=== PATIENT | male | born 1945 | race Hispanic/Latino ===

== ENCOUNTER 2022-12-08 08:50 | Day surgery (SDC) | payer OTHER ==
[2022-12-02 14:50] LABS: Absolute Lymphocytes (CBC) 1.7 K/uL (0.7-4.9); Hematocrit 39.5 % (39.6-49.0); Lymphocytes % 19.2 % (15.3-44.8); MCV 79.3 fL (80-100); RBC Red Blood Cell Count 4.98 M/uL (4.33-5.43)
[2022-12-02 14:54] LABS: Protime INR 1.1
[2022-12-02 15:02] LABS: Potassium 3.8 mEq/L (3.5-5.1)
--- NOTE | 2022-12-02 15:04 | RAD REPORT ---
EXAM DESCRIPTION: Artis Ragland (2 Views)12/02/2022 2:37 pm CLINICAL HISTORY: Preop for carpal tunnel surgery. Hypertension COMPARISON: 2019 FINDINGS: The lungs appear clear of acute infiltrate. The heart is normal size IMPRESSION: No acute abnormalities displayed
--- NOTE | 2022-12-03 10:12 | EKG ---
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
[2022-12-08] MEDS ORDERED: CEFAZOLIN SODIUM 1 GM/VIAL ONE (09:20)
[2022-12-08] MEDS ORDERED: Ringers Lactate 1,000 ML IV ONE (09:20)
[2022-12-08] MEDS ORDERED: propofoL 200 MG/20 ML VIAL IV ONE (11:13)
[2022-12-08] MEDS ORDERED: FENTANYL CITR 100 MCG/2 ML ONE (11:13)
[2022-12-08] MEDS ORDERED: MIDAZOLAM HCL 2 MG/2 ML INJ ONE (11:14)
[2022-12-08] MEDS ORDERED: LIDOCAINE 2% MPF 5 ML VIAL ONE (11:15)
[2022-12-08] MEDS ORDERED: ONDANSETRON 4 MG/2 ML VIAL ONE (11:15)
[2022-12-08] MEDS ORDERED: BUPIVACAINE 0.25% PF 10 ML VIAL ONE (11:24)
--- NOTE | 2022-12-08 12:39 | P.BOP ---
Preoperative diagnosis: left carpal tunnel syndrome Postoperative diagnosis: same Primary procedure: left open carpal tunnel release [employer]: NONE,NONE Estimated blood loss: 3 cc Specimen: none Findings: see dictation Anesthesia: General Complications: None Implants: none Fluids & blood products: per anesthesia record; TT: 20 mins @ 250 mmHg Transferred to: Recovery Room Condition: Good
--- NOTE | 2022-12-08 12:41 | P.OP ---
Preoperative diagnosis: left carpal tunnel syndrome Postoperative diagnosis: same Primary procedure: left open carpal tunnel release Anesthesia: general Estimated blood loss: 3 cc Specimen: none Findings: see dictation Operative Technique: Reason for Surgery: The patient had physical exam findings as well as EMG findings consistent with left carpal tunnel syndrome. I discussed with the patient at length risks and benefits associated with the procedure. They expressed understanding and elected proceed with operative treatment. Description of Procedure: After informed consent was obtained the patient was identified in the preoperative holding area. The left upper extremity was marked patient. Patient then brought back to the operating room transferred the operative table in supine fashion and placed under anesthesia. The left upper extremity was exsanguinated and the tourniquet was inflated to 250 mmHg. Approximately a 3 cm longitudinal incision was made just ulnar to the thenar crease. Dissection was then taken down to the palmar fascia which was identified. A [place] elevator was then placed just deep to the palmar fascia to protect the median nerve at all times. A 15 blade was then used to release the palmar fascia and transverse carpal ligament leaving the [place] elevator to protect the nerve at all times. Any remaining fascial bands were then released using a blunt tip Metzenbaum scissor. The tips were him superficially to protect the median nerve at all times. The wound was then irrigated thoroughly with normal saline. The skin was approximated using a 5-0 Prolene. Sterile dressings were applied and patient was awakened and transferred to PACU in stable condition. Postoperative plan: The patient will follow-up in 1 to 2 weeks for wound check and suture removal. They may begin to work on range of motion exercises at this time. Complications: None Implants: none Fluids & blood products: per anesthesia record; TT: 20 mins @ 250 mmHg Transferred to: Recovery Room Condition: Good
[2022-12-08 13:59] VITALS: BP 137/64; TEMP 97.4; O2SAT 96
== END 2022-12-08 13:30 | disposition home or self-care (01) ==
LOC: OR 08:50
PROVIDERS: ATTEND Orthopaedic Surgery Sports Medicine
PROC: 01N50ZZ Release Median Nerve, Open Approach (ICD-10-PCS; principal; 2022-12-08 11:00)
DX: G56.02 Carpal tunnel syndrome, left upper limb (principal); M25.542 Pain in joints of left hand
CPT/HCPCS: 93005; 85025; 80048; 36415; 85610; 85730; 71046; 64721; J2704; J2001; J2250; J3010; J2405; J7120; J0690

== ENCOUNTER 2023-03-05 06:42 | Emergency (ER) | payer OTHER ==
--- OUTSIDE RECORDS SUMMARY | 2023-03-05 06:45 | XMS REPORT | Continuity of Care Document ---
:1945 Author Organization [facility] t Address [address] [place] [address] [place] [id number] Care Team Providers Name Role Phone Aldo Pacheco Attending Clinician Problems Condition Condition Condition Status Onset Resolution Last Treating Co mments Source Name Details Category Date Date Treatment Clinician Date Carpal Carpal Problem Active 2022-11-07 Jose johnna tunnel tunnel 11:58:06 l syndrome syndrome Abelardo n (disorder) (disorder) Active Problem 11/07/2022 [facility] [place] Allergies, Adverse Reactions, Alerts This patient has no known allergies or adverse reactions. Medications This patient has no known medications. Procedures This patient has no known procedures. Encounters Start End Encounter Admission Attending Care Care Encounter Source Date/Time Date/Time Type Type Clinicians Facility Department ID 2022-11-04 2022-11-05 Outpatient [facility] [id number] 20:45:00 04:59:59 Neurology 00 l Vinny Bertrand 2022-11-04 2022-11-04 [id number] 15:45:00 23:59:59 Aldo Jaramillo 2022-11-04 2022-11-04 [id number] 15:45:00 15:45:00 00 l Jerzy Results This patient has no known results.
--- NOTE | 2023-03-05 08:21 | RAD REPORT ---
EXAM DESCRIPTION: RAD - Hand Left 3 View - 03/05/2023 8:12 am CLINICAL HISTORY: PAIN COMPARISON: No comparisons FINDINGS/IMPRESSION: Possible nondisplaced fracture at the thumb distal phalanx which is longitudina l in orientation and without intra-articular extension. No other possible fracture identified.
[2023-03-05] MEDS ORDERED: HYDROCODONE/APAP 7.5/325 MG TAB ONE (08:44)
--- NOTE | 2023-03-05 08:57 | EDPHYS ---
Physician Documentation [facility] Name: Wellington Finn Age: 77 yrs Sex: Male : 1945 Arrival Date: 03/05/2023 Time: 06:42 Bed 13 Private MD: ED Physician Ronald Lama HPI: 03/05 08:52 This 77 yrs old Male presents to ER via Ambulatory with complaints of Fall mila Injury, Hand Injury. 08:52 Details of fall: The patient fell from an upright position, while walking. Onset: The mila symptoms/episode began/occurred yesterday. Associated injuries: The patient sustained decreased range of motion, deformity, painful injury, swelling. Severity of symptoms: At their worst the symptoms were moderate, in the emergency department the symptoms are unchanged. The patient has not experienced similar symptoms in the past. Historical: - Allergies: 07:10 No Known Allergies; ll1 - PMHx: 07:10 Hypertensive disorder; Hypercholesterolemia; ll1 - PSHx: 07:10 cataract repair; hernia repair; carpal tunnel repair B; ll1 - Immunization history:: Client reports receiving the 2nd dose of the Covid vaccine. - Social history:: Smoking status: Patient denies any tobacco usage or history of. ROS: 08:53 Constitutional: Negative for fever, chills, and weight loss, Eyes: Negative for injury, mila pain, redness, and discharge, ENT: Negative for injury, pain, and discharge, Neck: Negative for injury, pain, and swelling, Cardiovascular: Negative for chest pain, palpitations, and edema, Respiratory: Negative for shortness of breath, cough, wheezing, and pleuritic chest pain, Abdomen/GI: Negative for abdominal pain, nausea, vomiting, diarrhea, and constipation, Back: Negative for injury and pain, : Negative for injury, bleeding, discharge, and swelling, Skin: Negative for injury, rash, and discoloration, Neuro: Negative for headache, weakness, numbness, tingling, and seizure, Psych: Negative for depression, anxiety, suicide ideation, homicidal ideation, and hallucinations, Allergy/Immunology: Negative for hives, rash, and allergies, Endocrine: Negative for neck swelling, polydipsia, polyuria, polyphagia, and marked weight changes. 08:53 MS/extremity: Positive for decreased range of motion, pain, swelling, tenderness, of the lateral aspect of left hand, dorsum of left hand and Left first web space. Exam: 08:53 Constitutional: This is a well developed, well nourished patient who is awake, alert, mila and in no acute distress. Head/Face: Normocephalic, atraumatic. Eyes: Pupils equal round and reactive to light, extra-ocular motions intact. Lids and lashes normal. Conjunctiva and sclera are non-icteric and not injected. Cornea within normal limits. Periorbital areas with no swelling, redness, or edema. ENT: Nares patent. No nasal discharge, no septal abnormalities noted. Tympanic membranes are normal and external auditory canals are clear. Oropharynx with no redness, swelling, or masses, exudates, or evidence of obstruction, uvula midline. Mucous membranes moist. Neck: Trachea midline, no thyromegaly or masses palpated, and no cervical lymphadenopathy. Supple, full range of motion without nuchal rigidity, or vertebral point tenderness. No Meningismus. Chest/axilla: Normal chest wall appearance and motion. Nontender with no deformity. No lesions are appreciated. Cardiovascular: Regular rate and rhythm with a normal S1 and S2. No gallops, murmurs, or rubs. Normal PMI, no JVD. No pulse deficits. Respiratory: Lungs have equal breath sounds bilaterally, clear to auscultation and percussion. No rales, rhonchi or wheezes noted. No increased work of breathing, no retractions or nasal flaring. Abdomen/GI: Soft, non-tender, with normal bowel sounds. No distension or tympany. No guarding or rebound. No evidence of tenderness throughout. Back: No spinal tenderness. No costovertebral tenderness. Full range of motion. Male : Normal genitalia with no discharge or lesions. Skin: Warm, dry with normal turgor. Normal color with no rashes, no lesions, and no evidence of cellulitis. Neuro: Awake and alert, GCS 15, oriented to person, place, time, and situation. Cranial nerves II-XII grossly intact. Motor strength 5/5 in all extremities. Sensory grossly intact. Cerebellar exam normal. Normal gait. Psych: Awake, alert, with orientation to person, place and time. Behavior, mood, and affect are within normal limits. 08:53 Musculoskeletal/extremity: Extremities: grossly normal except: decreased ROM, pain, swelling, tenderness, ROM: limited active range of motion, limited passive range of motion, limited active range of motion due to pain, limited passive range of motion due to pain, Circulation is intact in all extremities. Sensation intact. Compartment Syndrome exam of affected extremity: is normal. Tendon exam: specific tendon testing normal through active and passive range of motion Vital Signs: 07:10 BP 175 / 70; Pulse 63; Resp 17; Temp 98; Pulse Ox 97% on R/A; Pain 10/10; ll1 07:42 Weight 68.04 kg; ph 09:11 BP 120 / 87; Pulse 67; Resp 18; Pulse Ox 100% on R/A; ph 07:10 Pain Scale: Adult ll1 MDM: 07:07 Patient medically screened. mila 08:53 Differential diagnosis: dislocation, closed fracture, contusion, tendonitis. mila Differential diagnosis: contusion, fracture, sprain, strain. Data reviewed: vital signs, nurses notes, radiologic studies, plain films. Consideration of Admission/Observation Escalation of care including admission/observation considered. I considered the following discharge prescriptions or medication management in the emergency department Medications were administered in the Emergency Department. See MAR. Test considered but Not performed: Labs: NO LABS. Care significantly affected by the following chronic conditions: Hypertension, Obesity, HIGH CHOLESTEROL. Counseling: I had a detailed discussion with the patient and/or guardian regarding the historical points, exam findings, and any diagnostic results supporting the discharge/admit diagnosis, radiology results, the need for outpatient follow up, for definitive care, a orthopedic surgeon. 03/05 07:30 Order name: Hand Left 3 View XRAY [facility] 03/05 07:25 Order name: Thumb Spica Splint; Complete Time: 08:39 ll1 03/05 07:30 Order name: Ice pack; Complete Time: 08:06 mila Administered Medications: 08:39 Drug: Hydrocodone-Acetaminophen PO (7.5 mg-325 mg) 1 tabs Route: PO; ph 08:45 Follow up: Response: No adverse reaction ph Disposition Summary: 03/05/23 08:56 Discharge Ordered Location: Home mila Problem: new mila Symptoms: have improved mila Condition: Stable mila Diagnosis - Fall on same level, unspecified mila - Other sprain of left thumb mila Followup: mila - With: Private Physician - When: 2 - 3 days - Reason: Recheck today's complaints, Continuance of care, Re-evaluation by your physician Followup: [facility] - With: Vickey Peterson MD - When: 1 - 2 days - Reason: Recheck today's complaints, Continuance of care, Re-evaluation by your physician Discharge Instructions: - Discharge Summary Sheet [facility] - Hand Contusion mila - RICE Therapy for Routine Care of Injuries [facility] - Thumb Sprain [facility] - RICE Therapy for Routine Care of Injuries, [id number] [facility] - Hand Contusion, [id number] [facility] Forms: - Medication Reconciliation Form [facility] - Thank You Letter [facility] - Antibiotic Education [facility] - Prescription Opioid Use [facility] - Patient Portal Instructions [facility] - Leadership Thank You Letter [facility] Prescriptions: - acetaminophen-codeine 300-30 mg Oral tablet - take 2 tablet by ORAL route every 6 hours; 20 tablet; Refills: 0, Product [facility] Selection Permitted - Diclofenac Sodium 75 mg Oral tablet,delayed release (DR/EC) - take 1 tablet by ORAL route 2 times per day; 14 tablet; Refills: 0, Product [facility] Selection Permitted Signatures: Dispatcher [employer] EDMS Ronald Lama MD MD cha Hall, Patricia, RN RN Chau Brown RN RN ll1 Corrections: (The following items were deleted from the chart) 07:57 07:25 Finger-Thumb Left+.RAD.RAD.BRZ ordered. EDOH EDMS
--- NOTE | 2023-03-05 08:57 | ER ---
Nurse's Notes [facility] Name: Wellington Finn Age: 77 yrs Sex: Male : 1945 Arrival Date: 03/05/2023 Time: 06:42 Bed 13 Private MD: Diagnosis: Fall on same level, unspecified;Other sprain of left thumb Presentation: 03/05 07:10 Chief complaint: Patient states: Trip and fall yesterday. L hand bruising/swelling ll1 since. L knee abrasions. No LOC. Coronavirus screen: Vaccine status: Patient reports receiving the 2nd dose of the covid vaccine. Client denies travel out of the [place] in the last 14 days. At this time, the client does not indicate any symptoms associated with coronavirus-19. Ebola Screen: Patient denies travel to an Ebola-affected area in the 21 days before illness onset. Initial Sepsis Screen: Does the patient meet any 2 criteria? No. Patient's initial sepsis screen is negative. Does the patient have a suspected source of infection? Yes: Bone or joint infection. Risk Assessment: Do you want to hurt yourself or someone else? Patient reports no desire to harm self or others. Onset of symptoms was March 04, 2023. 07:10 Method Of Arrival: Ambulatory ll1 07:10 Acuity: ANEUDY 4 ll1 Triage Assessment: 07:12 General: Appears in no apparent distress. Behavior is calm, cooperative, appropriate ll1 for age. Pain: Complains of pain in left hand Quality of pain is described as aching, throbbing. Musculoskeletal: Circulation, motion, and sensation intact. Capillary refill < 3 seconds, Swelling present in left hand. Historical: - Allergies: 07:10 No Known Allergies; ll1 - PMHx: 07:10 Hypertensive disorder; Hypercholesterolemia; ll1 - PSHx: 07:10 cataract repair; hernia repair; carpal tunnel repair B; ll1 - Immunization history:: Client reports receiving the 2nd dose of the Covid vaccine. - Social history:: Smoking status: Patient denies any tobacco usage or history of. Screenin:40 [facility] ED Fall Risk Assessment (Adult) History of falling in the last 3 months, ph including since admission Yes- single mechanical fall (1 pt) Confusion or Disorientation No (0 pts) Intoxicated or Sedated No (0 pts) Impaired Gait No (0 pts) Mobility Assist Device Used No (0 pt) Altered Elimination No (0 pt) Score/Fall Risk Level 0 - 2 = Low Risk Oriented to surroundings, Maintained a safe environment. Abuse screen: Denies threats or abuse. Denies injuries from another. Nutritional screening: No deficits noted. Tuberculosis screening: No symptoms or risk factors identified. Assessment: 08:39 General: Appears in no apparent distress. comfortable, Behavior is calm, cooperative, ph appropriate for age. Pain: Complains of pain in left hand. Neuro: Aleman Agitation-Sedation Scale (RASS): 0 - Alert and Calm Level of Consciousness is awake, alert, obeys commands, Oriented to person, place, time, situation. Cardiovascular: Capillary refill < 3 seconds in bilateral fingers Patient's skin is warm and dry. Derm: Skin is pink, warm \T\ dry. Bruising that is dark purple, on dorsal aspect of proximal phalanx of left thumb. Musculoskeletal: Circulation, motion, and sensation intact. Range of motion: intact in all extremities, Swelling present in dorsal aspect of proximal phalanx of left thumb. 09:12 Reassessment: Patient appears in no apparent distress at this time. Patient and/or ph family updated on plan of care and expected duration. Pain level reassessed. Patient is alert, oriented x 3, equal unlabored respirations, skin warm/dry/pink. Vital Signs: 07:10 BP 175 / 70; Pulse 63; Resp 17; Temp 98; Pulse Ox 97% on R/A; Pain 10/10; ll1 07:42 Weight 68.04 kg; ph 09:11 BP 120 / 87; Pulse 67; Resp 18; Pulse Ox 100% on R/A; ph 07:10 Pain Scale: Adult ll1 ED Course: 06:46 Patient arrived in ED. jj6 07:07 Ronald Lama MD is Attending Physician. mila 07:10 Arm band placed on Patient placed in an exam room, on a stretcher. ll1 07:12 Triage completed. ll1 07:42 Felicia Benz, DELANEY is Primary Nurse. ph 08:14 Hand Left 3 View XRAY In Process Unspecified. EDMS 08:40 Patient has correct armband on for positive identification. Bed in low position. Call ph light in reach. Side rails up X 1. 08:46 Velcro wrist splint applied to left wrist. mm9 08:56 Vickey Peterson MD is Referral Physician. [facility] 09:13 No provider procedures requiring assistance completed. Patient did not have IV access ph during this emergency room visit. Administered Medications: 08:39 Drug: Hydrocodone-Acetaminophen PO (7.5 mg-325 mg) 1 tabs Route: PO; ph 08:45 Follow up: Response: No adverse reaction ph Medication: 08:40 VIS not applicable for this client. ph Outcome: 08:56 Discharge ordered by . mila 09:14 Discharged to home ambulatory. ph 09:14 Condition: good 09:14 Discharge instructions given to patient, Instructed on discharge instructions, follow up and referral plans. medication usage, Demonstrated understanding of instructions, follow-up care, medications, Prescriptions given X 2. 09:14 Patient left the ED. ph Signatures: Dispatcher [employer] EDMS Ronald Lama MD MD cha Hall, Patricia, RN RN Chau Brown RN RN 1 Sudha Crow Maria mm9 Corrections: (The following items were deleted from the chart) 09:13 09:11 BP 140 / 92; Pulse 67bpm; Resp 18bpm; Pulse Ox 100% 2 lpm Nasal Cannula; ph ph 09:13 09:11 Reassessment: Patient appears in no apparent distress at this time. Patient ph and/or family updated on plan of care and expected duration. Pain level reassessed. Dr Goel at bedside to speak w/ pt ph
== END 2023-03-05 09:14 | disposition home or self-care (01) ==
LOC: ER 06:42
DX: S63.682A Other sprain of left thumb, initial encounter (principal); W18.30XA Fall on same level, unspecified, initial encounter
CPT/HCPCS: 99283

== ENCOUNTER 2024-01-10 18:15 | Emergency (ER) | payer OTHER ==
[2024-01-10 19:22] LABS: Anion Gap 7.4 mEq/L (5.0-15.0); Troponin High Sensitivity 8.2 pg/mL (<58.9)
[2024-01-10 19:23] LABS: Potassium 3.4 mEq/L (3.5-5.1)
[2024-01-10 19:32] LABS: Absolute Eosinophils 0.2 K/uL (0-0.5); Absolute Lymphocytes (CBC) 1.5 K/uL (0.7-4.9); Absolute Monocytes 0.9 K/uL (0.1-1.3); Absolute Neutrophil 4.9 K/uL (1.8-8.0); Basophils % 0.6 % (0-1.3); Eosinophils % 2.8 % (0-4.4); Hematocrit 36.3 % (39.6-49.0); Hemoglobin 11.4 g/dL (13.6-17.9); Lymphocytes % 19.8 % (15.3-44.8); MCH 22.4 pg (27.0-35.0); MCHC 31.3 g/dL (32.0-36.0); MCV 71.3 fL (80-100); MPV 7.1 fL (7.6-11.3); Monocytes % 11.5 % (3.3-12.3); Neutrophils % 65.3 % (41.7-73.7); Nucleated Red Blood Cells % 0.1 % (0-0); Platelets 257 thou/uL (152-406); RBC Red Blood Cell Count 5.09 M/uL (4.33-5.43); Red Cell Distribution Width 19.6 % (12.1-15.2)
--- NOTE | 2024-01-10 19:38 | RAD REPORT ---
EXAM DESCRIPTION: Artis Single View01/10/2024 7:23 pm CLINICAL HISTORY: sob COMPARISON: 2022 FINDINGS: The lungs appear clear of acute infiltrate. The heart is borderline enlarged IMPRESSION: No acute abnormalities displayed
[2024-01-10] MEDS ORDERED: FUROSEMIDE 20 MG/ 2ML VIAL ONE (20:11)
[2024-01-10] MEDS ORDERED: POTASSIUM CL SA 10 MEQ TAB PO ONE (20:11)
--- NOTE | 2024-01-10 20:44 | EDPHYS ---
Physician Documentation [facility] Name: Wellington Finn Age: 78 yrs Sex: Male : 1945 Arrival Date: 01/10/2024 Time: 18:15 Bed 20 Private MD: ED Physician Robin Santamaria HPI: 01/09 18:30 This 78 yrs old Male presents to ER via Unassigned with complaints of Feet ec2 Swelling, painful on top of feet. 18:30 Patient arrives today for evaluation of bilateral lower extremity edema. Patient ec2 reports that he has been having worsening swelling in the bilateral lower extremities. Patient reports no history of heart failure, no kidney disease, no liver disease. Denies any difficulty breathing. Denies any cough and cold symptoms. Reports history of hypertension, medication list supports this. No diuretic prescribed.. Historical: - Allergies: 19:08 No Known Allergies; tl4 - PMHx: 19:08 Hypercholesterolemia; Hypertensive disorder; tl4 - PSHx: 19:08 carpal tunnel repair B; cataract repair; hernia repair; tl4 ROS: 18:30 Constitutional: as per hpi ec2 Exam: 18:30 Constitutional: GEN: NAD Head: atraumatic Eyes: EOMI Ears: External ears are ec2 normal. CV: regular rate, 2+ lower extremity edema bilaterally. LUNGS: no respiratory distress ABD: non-distended SKIN: no evidence of rashes MSK: no evidence of trauma NEURO: moves all extremities equally Vital Signs: 18:32 BP 138 / 82; Pulse 91; Resp 20; Pulse Ox 98% on R/A; Weight 124.74 kg; Height 5 ft. 8 tl4 in. ; Pain 8/10; 20:30 BP 139 / 81; Pulse 88; Resp 16; Pulse Ox 95% on R/A; jb4 18:32 Body Mass Index 41.81 (124.74 kg, 172.72 cm) tl4 18:32 Pain Scale: Adult tl4 MDM: 18:26 Patient medically screened. ec2 18:30 Data reviewed: vital signs. ED course: Patient arrives today for lower extremity edema. ec2 Examination remarkable for pitting edema as noted above. Will obtain lab work, EKG, chest x-ray. Differential diagnoses include CHF, kidney disease, liver disease.. 18:56 ED course: EKG independently reviewed and interpreted by me, shows normal sinus rhythm, ec2 rate of 86, no acute ST segment elevations, intervals are nonconcerning.. 19:36 ED course: Metabolic profile shows renal dysfunction with creatinine 1.31 and a GFR 56, ec2 hypokalemia with potassium of 3.4, CBC shows slight anemia. BNP slightly elevated at 27, troponin within normal ranges. . 19:42 ED course: Chest x-ray independently reviewed and interpreted by me, shows no acute ec2 intrathoracic process. . 20:45 ED course: MDM: Differential diagnosis as documented above in ED course; All lab tests ec2 ordered and reviewed as documented above; Independent interpretation of tests: EKG as above; imaging as above; . 07 18:30 Order name: Basic Metabolic Panel; Complete Time: 19:35 ec2 01/09 18:30 Order name: CBC with Diff; Complete Time: 19:35 ec2 01/09 18:30 Order name: NT PRO-BNP; Complete Time: 19:35 ec2 01/09 18:30 Order name: Troponin HS; Complete Time: 19:35 ec2 01/09 19:36 Order name: LFT's ec2 01/09 18:30 Order name: XRAY Chest (1 view); Complete Time: 19:41 ec2 01/09 18:30 Order name: Cardiac monitoring; Complete Time: 18:32 ec2 01/09 18:30 Order name: EKG - Nurse/Tech; Complete Time: 18:45 ec2 01/09 18:30 Order name: IV Saline Lock; Complete Time: 19:20 ec2 01/09 18:30 Order name: Labs collected and sent; Complete Time: 18:57 ec2 01/09 18:30 Order name: O2 Per Protocol; Complete Time: 18:32 ec2 01/09 18:30 Order name: O2 Sat Monitoring; Complete Time: 18:32 ec2 Administered Medications: 20:41 Drug: Furosemide IVP 20 mg IVP once; give over 2 minutes Route: IVP; Site: right jb4 antecubital; 20:41 Drug: Potassium Chloride PO 40 mEq PO once Route: PO; jb4 Disposition Summary: 01/10/24 20:43 Discharge Ordered Condition: Stable ec2 Diagnosis - Localized edema ec2 - Hypokalemia ec2 Followup: ec2 - With: Private Physician - When: - Reason: Re-evaluation by your physician Discharge Instructions: - Discharge Summary Sheet ec2 - Edema, [id number] ec2 Forms: - Medication Reconciliation Form ec2 - Antibiotic Education ec2 - Prescription Opioid Use ec2 - Patient Portal Instructions ec2 - Leadership Thank You Letter ec2 Prescriptions: - Lasix 20 mg Oral tablet - take 1 tablet ORAL route once daily; 10 tablet; Refills: 0, Product Selection ec2 Permitted Signatures: Dispatcher [employer] Georges Cassidy, DELANEY RN jb4 Robin Santamaria MD MD ec2 Parag Barger RN RN tl4 Corrections: (The following items were deleted from the chart) 18:31 18:31 BASIC METABOLIC PANEL+C.LAB.BRZ ordered. EDMS EDMS 18:31 18:31 CBC+H.LAB.BRZ ordered. EDMS EDMS 18:31 18:31 PROBNP+C.LAB.BRZ ordered. EDMS EDMS 18:31 18:31 Troponin High Sensitivity+C.LAB.BRZ ordered. EDMS EDMS 18:31 18:31 Chest Single View+RAD.RAD.BRZ ordered. EDMS EDMS
--- NOTE | 2024-01-10 20:44 | ER ---
Nurse's Notes [facility] Name: Wellington Finn Age: 78 yrs Sex: Male : 1945 Arrival Date: 01/10/2024 Time: 18:15 Bed 20 Private MD: Diagnosis: Localized edema;Hypokalemia Presentation: 01/09 18:32 Chief complaint: Patient states: Pt complains of swelling in both feet x couple of tl4 days. Pt denies CP, SOB. Pt denies any history of HF. Coronavirus screen: At this time, the client does not indicate any symptoms associated with coronavirus-19. Ebola Screen: No symptoms or risks identified at this time. Initial Sepsis Screen: Does the patient meet any 2 criteria? No. Patient's initial sepsis screen is negative. Does the patient have a suspected source of infection? No. Patient's initial sepsis screen is negative. Risk Assessment: Do you want to hurt yourself or someone else? Patient reports no desire to harm self or others. Onset of symptoms was January 08, 2024. 18:32 Method Of Arrival: Ambulatory tl4 18:32 Acuity: ANEUDY 3 tl4 Triage Assessment: 18:34 General: Appears uncomfortable, Behavior is calm, cooperative. Pain: Complains of pain tl4 in right leg and left leg. EENT: No signs and/or symptoms were reported regarding the EENT system. Neuro: Level of Consciousness is awake, alert, obeys commands, Oriented to person, place, time, situation, Moves all extremities. Full function Gait is steady, Speech is normal. Cardiovascular: Denies chest pain, diaphoresis, palpitations, shortness of breath, Capillary refill < 3 seconds Patient's skin is warm and dry. Cardiovascular: Respiratory: Airway is patent Respiratory effort is even, unlabored, Respiratory pattern is regular, symmetrical. GI: No signs and/or symptoms were reported involving the gastrointestinal system. : No signs and/or symptoms were reported regarding the genitourinary system. Derm: No signs and/or symptoms reported regarding the dermatologic system. Musculoskeletal: Swelling present in right leg and left leg. Historical: - Allergies: 19:08 No Known Allergies; tl4 - PMHx: 19:08 Hypercholesterolemia; Hypertensive disorder; tl4 - PSHx: 19:08 carpal tunnel repair B; cataract repair; hernia repair; tl4 Screenin:45 [facility] ED Fall Risk Assessment (Adult) History of falling in the last 3 months, kc6 including since admission No falls in past 3 months (0 pts) Confusion or Disorientation No (0 pts) Intoxicated or Sedated No (0 pts) Impaired Gait No (0 pts) Mobility Assist Device Used No (0 pt) Altered Elimination No (0 pt) Score/Fall Risk Level 0 - 2 = Low Risk. Abuse screen: Denies threats or abuse. Denies injuries from another. Nutritional screening: No deficits noted. Tuberculosis screening: No symptoms or risk factors identified. Assessment: 19:00 General: Appears in no apparent distress. comfortable, Behavior is calm, cooperative, jb4 appropriate for age. Pain: Denies pain. Neuro: Level of Consciousness is awake, alert, obeys commands, Oriented to person, place, time, situation. Cardiovascular: Patient's skin is warm and dry. Respiratory: Airway is patent Respiratory effort is even, unlabored, Respiratory pattern is regular, symmetrical. GI: No signs and/or symptoms were reported involving the gastrointestinal system. : No signs and/or symptoms were reported regarding the genitourinary system. EENT: No signs and/or symptoms were reported regarding the EENT system. Derm: Skin is intact, Skin is pink, warm \T\ dry. Musculoskeletal: Circulation, motion, and sensation intact. Range of motion: intact in all extremities, Swelling present in right leg and left leg. 20:00 Reassessment: Patient appears in no apparent distress at this time. Patient and/or jb4 family updated on plan of care and expected duration. Pain level reassessed. Patient is alert, oriented x 3, equal unlabored respirations, skin warm/dry/pink. 21:00 Reassessment: Patient appears in no apparent distress at this time. Patient and/or jb4 family updated on plan of care and expected duration. Pain level reassessed. Patient is alert, oriented x 3, equal unlabored respirations, skin warm/dry/pink. Vital Signs: 18:32 BP 138 / 82; Pulse 91; Resp 20; Pulse Ox 98% on R/A; Weight 124.74 kg; Height 5 ft. 8 tl4 in. ; Pain 8/10; 20:30 BP 139 / 81; Pulse 88; Resp 16; Pulse Ox 95% on R/A; jb4 18:32 Body Mass Index 41.81 (124.74 kg, 172.72 cm) tl4 18:32 Pain Scale: Adult tl4 ED Course: 18:17 Patient arrived in ED. ra3 18:17 Robin Santamaria MD is Attending Physician. ec2 18:34 Triage completed. tl4 18:35 Arm band placed on right wrist. tl4 18:38 Rosangela Grey, DELANEY is Primary Nurse. kc6 18:46 Patient has correct armband on for positive identification. Bed in low position. Call kc6 light in reach. Side rails up X 1. Adult w/ patient. monitoring tech on. Pulse ox on. NIBP on. Pillow given. 19:01 Missed attempt(s): 20 gauge in right in left antecubital area. Bleeding controlled, aw1 band aid applied, catheter tip intact. 19:20 Inserted saline lock: 20 gauge in right antecubital area, using aseptic technique. kd3 Blood collected. ultrasound guided. 19:25 XRAY Chest (1 view) In Process Unspecified. EDMS 21:08 Provided Education on: discharge instructions.. jb4 21:08 No provider procedures requiring assistance completed. IV discontinued, intact, jb4 bleeding controlled, No redness/swelling at site. Pressure dressing applied. Administered Medications: 20:41 Drug: Furosemide IVP 20 mg IVP once; give over 2 minutes Route: IVP; Site: right jb4 antecubital; 20:41 Drug: Potassium Chloride PO 40 mEq PO once Route: PO; jb4 Medication: 20:30 VIS not applicable for this client. jb4 Outcome: 20:43 Discharge ordered by . ec2 21:08 Discharged to home via wheelchair, with family, jb4 21:08 Condition: stable 21:08 Discharge instructions given to patient, Instructed on discharge instructions, follow up and referral plans. medication usage, Demonstrated understanding of instructions, follow-up care, medications, Prescriptions given X 1, 21:09 Patient left the ED. jb4 Signatures: Dispatcher [employer] EDMS Georges Garcia RN RN jb4 Darlyn Ruiz RN RN kd3 Rosangela Grey, RN RN kc6 Gali Ba aw1 Robin Santamaria MD MD ec2 Logdahl, Parag, RN RN tl4 Maldonado, Nita ra3
[2024-01-10 21:28] LABS: ALT/SGPT 75 U/L (16-61); AST/SGOT 59 U/L (15-37); Albumin 3.5 g/dL (3.4-5.0); Albumin/Globulin Ratio 0.9 (1.1-1.8); Alkaline Phosphatase 117 U/L (45-117); Bilirubin Direct < 0.2 mg/dL (0-0.2); Bilirubin Indirect, Calculated 0.1 mg/dL (0.2-0.8); Bilirubin Total 0.3 mg/dL (0.2-1.0); Globulin 3.9 g/dL (2.3-3.5); Protein, Total 7.4 g/dL (6.4-8.2)
[2024-01-10 21:34] VITALS: BP 138/82; O2SAT 98
== END 2024-01-10 21:09 | disposition home or self-care (01) ==
LOC: ER 18:15
DX: R60.0 Localized edema (principal); E87.6 Hypokalemia; I10 Essential (primary) hypertension
CPT/HCPCS: 85025; 80048; 36415; 80076; 84484; 83880; 71045; J1940; 93005